=== PATIENT | female | born 1990 | race American Indian/Alaskan Native ===

== ENCOUNTER 2021-01-01 06:02 | Day surgery (SDC) | payer MEDICAID ==
[~2021-01-01 06:02] MED LIST: ACETAMINOPHEN 500 MG TAB PO SCH; CELECOXIB 200 MG CAP PO NR; GABAPENTIN 300 MG CAP PO NR; LACTATED RINGERS 1,000 ML IV SCH; MIDAZOLAM 2 MG/2 ML INJ IV NR; SCOPOLAMINE TRANSDERMAL PATCH 72 HR TD NR; ceFAZolin/STERILE WATER 2 GM/20 ML SYRINGE IV NR
[2021-01-01] MEDS ORDERED: propofoL 200 MG/20 ML VIAL IV ONE (08:58)
[2021-01-01] MEDS ORDERED: fentaNYL 100 MCG/2 ML INJ ONE (08:58)
[2021-01-01] MEDS ORDERED: LIDOCAINE MPF (2%) 20 MG/1 ML VIAL 5 ML ONE (08:59)
[2021-01-01] MEDS ORDERED: ONDANSETRON 4 MG/2 ML INJ ONE (08:59)
[2021-01-01] MEDS ORDERED: dexAMETHasone 20 MG/5 ML VIAL ONE (08:59)
[2021-01-01] MEDS ORDERED: ROCURONIUM 50 MG/5 ML INJ IV ONE (08:59)
[2021-01-01] MEDS ORDERED: HYDROcodone/ACETAMINOPHEN 5-325 MG TAB PO PRN (09:07)
[2021-01-01] MEDS ORDERED: ONDANSETRON 4 MG/2 ML INJ IV PRN (09:07)
--- NOTE | 2021-01-01 09:07 | Anesthesia Day of Surgery ---
Anesthesia Day of Surgery - Day of Surgery Patient Examined: Yes Patient H&P Reviewed: Yes Patient is NPO: Yes
--- NOTE | 2021-01-01 09:07 | Anesthesia Consultation ---
Anesthesia Consult and Med Hx Date of service: 01/01/21 - Airway Anesthetic Teeth Evaluation: Good ROM Head & Neck: Adequate Mental/Hyoid Distance: Adequate Mallampati Class: Class III Intubation Access Assessment: Possibly Difficult - Pre-Operative Health Status ASA Pre-Surgery Classification: ASA3 Proposed Anesthetic Plan: General - Pulmonary Hx Smoking: No Hx Respiratory Symptoms: No Hx Sleep Apnea: No - Cardiovascular System Hx Hypertension: No Hx Heart Attack/AMI: No - Central Nervous System CVA: No Hx Back Pain: Yes - Endocrine Hx Renal Disease: No Hx Liver Disease: No Hx Insulin Dependent Diabetes: No Hx Non-Insulin Dependent Diabetes: No Hx Thyroid Disease: No - Other Systems Hx Obesity: Yes (BMI 42)
[2021-01-01] MEDS ORDERED: LIDOCAINE (1%) 10 MG/1 ML VIAL 20 ML MDV ONE (09:17)
[2021-01-01] MEDS ORDERED: BUPIVACAINE/PF (0.5%) 5 MG/1 ML 30 ML VIAL INFILTRATI ONE (09:17)
[2021-01-01] MEDS ORDERED: HYDROmorphone 1 MG/1 ML INJ ONE (09:52)
[2021-01-01] MEDS ORDERED: GLYCOPYRROLATE 0.4 MG/2 ML INJ ONE ×2 (09:52→10:29)
[2021-01-01] MEDS ORDERED: NEOSTIGMINE 10MG/10 ML INJ MDV ONE (09:52)
[2021-01-01] MEDS ORDERED: LACTATED RINGERS 1,000 ML ONE (10:02)
--- NOTE | 2021-01-01 10:32 | Short Stay Summary ---
Short Stay Documentation Date of service: 01/01/21 - History Principal diagnosis: symptomatic cholelithiasis H&P: obtained from office - Allergies and Medications Current Medications: Allergies No Known Allergies Allergy (Unverified 12/25/20 16:52) Home Medications Medication Instructions Recorded Confirmed Last Taken Type Depo-Provera (Contraception) 1 syr IM [id number] 12/25/20 12/25/20 Unknown History Active Medications Acetaminophen (Acetaminophen 500 Mg Tab) 1,000 mg PO PREOP CATHI Stop: 01/01/21 23:59 Last Admin: 01/01/21 07:30 Dose: 1,000 mg Documented by: Hydrocodone Bitart/Acetaminophen (Hydrocodone/Acetaminophen 5-325 Mg Tab) 2 each PO ONCE PRN PRN Reason: Pain, Moderate (4-6) Cefazolin Sodium (Cefazolin/Sterile Water 2 Gm/20 Ml Syringe) 2 gm IV PREOP NR Stop: 01/01/21 23:59 Celecoxib (Celecoxib 200 Mg Cap) 200 mg PO PREOP NR Stop: 01/01/21 23:59 Last Admin: 01/01/21 07:30 Dose: 200 mg Documented by: Gabapentin (Gabapentin 300 Mg Cap) 300 mg PO PREOP NR Stop: 01/01/21 23:59 Last Admin: 01/01/21 07:30 Dose: 300 mg Documented by: Hydromorphone HCl (Hydromorphone 1 Mg/1 Ml Inj) 0.5 mg IV Q10MIN PRN PRN Reason: Pain , Severe (7-10) Lactated Ringer's (Lactated Ringers) 1,000 mls @ 100 mls/hr IV DIRECT CATHI Stop: 01/01/21 23:59 Last Admin: 01/01/21 07:35 Dose: 100 mls/hr Documented by: Midazolam HCl (Midazolam 2 Mg/2 Ml Inj) 2 mg IV PREOP NR Stop: 01/01/21 23:59 Last Admin: 01/01/21 07:35 Dose: 2 mg Documented by: Ondansetron HCl (Ondansetron 4 Mg/2 Ml Inj) 4 mg IV ONCE PRN PRN Reason: Nausea And Vomiting Scopolamine (Scopolamine Transdermal Patch 72 Hr) 1 each TD PREOP NR Stop: 01/04/21 23:59 Last Admin: 01/01/21 07:30 Dose: 1 each Documented by: - Brief post op/procedure progress note Date of procedure: 01/01/21 Pre-op diagnosis: symptomatic cholelithiasis Post-op diagnosis: same Procedure: laparoscopic cholecystectomy Anesthesia: GETA, local Findings: gallbladder with stones Surgeon: JAYLA OWEN (Jeannette Miller, SCRAPPER assist) Estimated blood loss: minimal Pathology: list (gallbladder) Specimen disposition: to lab Condition: stable - Hospital course Hospital course: Patient observed in PACU and discharged home in stable condition once criteria met - Disposition Condition at discharge: Good Disposition: DC-01 TO HOME OR SELFCARE Short Stay Discharge Plan Activity: other (Avoid heavy lifting greater than 20 pounds for the next 2 weeks, no driving while taking prescription pain medication) Diet: low fat Wound: open to air (May shower tomorrow, pat incisions dry and do not scrub. Do not submerge incisions in bath, hot tub, pool) Follow up with: JULITO SARABIA MD [Primary Care Provider] - 7 Days JAYLA OWEN DO [Staff Physician] - 14 Days Prescriptions: HYDROcodone/APAP 5-325 [[place] 5-325 mg TAB] 1 each PO Q6HR PRN #20 tablet PRN Reason: Pain , Severe (7-10)
--- NOTE | 2021-01-01 10:36 | Operative Report ---
Operative Report Operative Report: Date of procedure: 01/01/21 Pre-op diagnosis: symptomatic cholelithiasis Post-op diagnosis: same Procedure: laparoscopic cholecystectomy Anesthesia: GETA, local Findings: gallbladder with stones Surgeon: JAYLA OWEN Metal Template Maker: BARTOLO Joaquin Estimated blood loss: minimal Pathology: list (gallbladder) Specimen disposition: to lab Condition: stable Hospital course: Patient observed in PACU and discharged home in stable condition once criteria met HPI an indication: 30-year-old female who was seen in the surgery clinic for evaluation of gallstones. Patient was having epigastric abdominal pain radiating to the back which is associated with eating greasy foods. CT scan of the abdomen and pelvis along with ultrasound of the abdomen were reviewed. Patient had gallbladder with mobile gallstones without evidence of choledocholithiasis or cholecystitis. Labs were unremarkable. As the patient was symptomatic from her gallstones, cholecystectomy was recommended. Consent was obtained in the office. Procedure in detail: The patient was identified in the preoperative area and taken back to the operating room, placed on the operating room table in supine position. After anesthesia was induced, the abdomen was prepped and draped in usual sterile fashion and timeout was performed. Local anesthetic was infiltrated into all of the skin incision sites. Using a 11 blade a cruz incision was made in the left upper quadrant at Rust's point through which a Veress needle was inserted. The Veress needle position was confirmed using saline drop test and the abdomen insufflated to 15 mmHg without incident. A supraumbilical incision was then made through which a 5 mm Optiview trocar was placed. The abdomen was then inspected and there was no underlying injury to th e abdominal structures. The Veress needle was identified and removed. The patient was placed in reverse Trendelenburg and tilted to the left. The gallbladder was visualized in the right upper quadrant. An additional 12 mm subxyphoid port, and 2, 5mm RUQ ports were then placed under direct visualization. The gallbladder fundus was grasped and retracted cephalad. The cystic duct and artery were then carefully dissected and the critical view obtained, and the cystic duct and artery were the only two structures seen entering the gallbladder. Three clips were then placed on the proximal aspect of the cystic duct and one clip distally, and 1 clips on the cystic artery proximally. The cystic duct was then transected in between the clips using EndoShears. The cystic artery was very small and was ligated using hook electrocautery. The gallbladder was dissected from the liver bed using hook electrocautery. The gallbladder was placed into a Endo Catch bag and removed from the abdomen via the 12mm port. The gallbladder was palpated and contained multiple small stones. The gallbladder fossa was then inspected and there was no identifiable bleeding or bile leakage. Hemostasis was ensured. The clips on the cystic duct and artery were visualized and intact. The 12 mm port fascia was closed with 2, interrupted 0 Vicryl sutures using the Abram Ojeda device. The remaining ports were removed under direct visualization. Skin incisions were closed with 4-0 Monocryl subcuticular stitches and skin glue. All skin incisions were once again infiltrated with local anesthetic. At the end case all sponge, instrument, sharp counts were correct 2. The patient was awoken from anesthesia, extubated, taken to PACU in stable condition.
[2021-01-01] MEDS: HYDROmorphone 1 MG/1 ML INJ IV PRN ×2 (10:58→11:08)
[2021-01-01 12:43] VITALS: BP 110/58
--- NOTE | 2021-01-01 15:39 | Post Anesthesia Evaluation ---
- Post Anesthesia Evaluation Patient Participated: Yes Airway Patent: Yes Stable Respiratory Function: Yes Nausea/Vomiting: No Temp > 96.8F: Yes Pain Manageable: Yes Adequeate Hydration: Yes Anesthesia Complications: No
== END 2021-01-01 12:10 | disposition home or self-care (01) ==
LOC: OR 06:02 → EDBD 07:30 → OR 12:10
PROVIDERS: ATTEND Surgery
DX: K80.10 Calculus of gallbladder with chronic cholecystitis without obstruction (principal); Z20.822 Contact with and (suspected) exposure to COVID-19; G43.909 Migraine, unspecified, not intractable, without status migrainosus; K21.9 Gastro-esophageal reflux disease without esophagitis; M19.90 Unspecified osteoarthritis, unspecified site; Z72.89 Other problems related to lifestyle; Z79.899 Other long term (current) drug therapy; Z87.440 Personal history of urinary (tract) infections; Z98.890 Other specified postprocedural states
CPT/HCPCS: 47562; 81025; 88304; J0690; J1100; J1170; J2250; J2405; J2704; J2710; J3010; J7120; U0003

== ENCOUNTER 2022-04-07 07:08 | Day surgery (SDC) | payer MEDICAID ==
[~2022-04-07 07:08] MED LIST changes: -ACETAMINOPHEN 500 MG TAB PO SCH; +BUPIVACAINE/PF (0.25%) 2.5 MG/ML 30 ML VIAL INFILTRATI ONE; -CELECOXIB 200 MG CAP PO NR; -GABAPENTIN 300 MG CAP PO NR; -LACTATED RINGERS 1,000 ML IV SCH; +LIDOCAINE (1%) 10 MG/1 ML VIAL 20 ML MDV INFILTRATI ONE; -MIDAZOLAM 2 MG/2 ML INJ IV NR; -SCOPOLAMINE TRANSDERMAL PATCH 72 HR TD NR; +WATER FOR IRRIG STERILE 1,500 ML BOTTLE IR ONE; -ceFAZolin/STERILE WATER 2 GM/20 ML SYRINGE IV NR
[2022-04-07] MEDS ORDERED: LACTATED RINGERS 1,000 ML ONE (07:31)
[2022-04-07] MEDS ORDERED: BUPIVACAINE/PF (0.25%) 2.5 MG/ML 30 ML VIAL INFILTRATI ONE (07:41)
[2022-04-07] MEDS ORDERED: LIDOCAINE (1%) 10 MG/1 ML VIAL 20 ML MDV ONE (07:41)
[2022-04-07] MEDS ORDERED: HYDROmorphone 0.5 MG/0.5 ML INJ IV PRN ×2 (07:59)
[2022-04-07] MEDS ORDERED: ONDANSETRON 4 MG/2 ML INJ IV PRN (07:59)
[2022-04-07] MEDS ORDERED: MIDAZOLAM 2 MG/2 ML INJ IV NR (08:00)
[2022-04-07] MEDS ORDERED: LACTATED RINGERS 1,000 ML IV SCH (08:00)
--- NOTE | 2022-04-07 08:00 | Anesthesia Day of Surgery ---
Anesthesia Day of Surgery - Day of Surgery Patient Examined: Yes Patient H&P Reviewed: Yes Patient is NPO: Yes
--- NOTE | 2022-04-07 08:02 | Anesthesia Consultation ---
Anesthesia Consult and Med Hx Date of service: 04/07/22 - Airway Anesthetic Teeth Evaluation: Crowns ROM Head & Neck: Adequate Mental/Hyoid Distance: Adequate Mallampati Class: Class III Intubation Access Assessment: Probably Good - Pre-Operative Health Status ASA Pre-Surgery Classification: ASA3 Proposed Anesthetic Plan: General - Pulmonary Hx Smoking: No Hx Asthma: No Hx Respiratory Symptoms: No COPD: No Hx Pneumonia: No Hx Sleep Apnea: No - Cardiovascular System Hx Hypertension: No Hx Heart Attack/AMI: No Hx Pacemaker: No Hx Internal Defibrillator: No Hx Heart Murmur: No - Central Nervous System Hx Seizures: No CVA: No Hx Back Pain: Yes Hx Psychiatric Problems: No - Gastrointestinal Hx Gastroesophageal Reflux Disease: Yes (Dietary) - Endocrine Hx Renal Disease: No Hx End Stage Renal Disease: No Hx Cirrhosis: No Hx Liver Disease: No Hx Insulin Dependent Diabetes: No Hx Non-Insulin Dependent Diabetes: No Hx Thyroid Disease: No - Hematic Hx Anemia: No Hx Sickle Cell Disease: No - Other Systems Hx Alcohol Use: Yes (Occas) Hx Substance Use: No Hx Cancer: Yes Hx Obesity: Yes (BMI 44) - Additional Comments Anesthesia Medical History Comments: Was here last year for lap chol
[2022-04-07] MEDS ORDERED: propofoL 200 MG/20 ML VIAL IV ONE (08:03)
[2022-04-07] MEDS ORDERED: fentaNYL 100 MCG/2 ML INJ ONE (08:09)
[2022-04-07] MEDS ORDERED: dexAMETHasone 20 MG/5 ML VIAL ONE (08:09)
[2022-04-07] MEDS ORDERED: ceFAZolin 1 GM VIAL ONE ×2 (09:00)
--- NOTE | 2022-04-07 11:32 | Short Stay Summary ---
Short Stay Documentation Date of service: 04/07/22 - History Principal diagnosis: Left breast mass H&P: obtained from office - Allergies and Medications Current Medications: Allergies No Known Allergies Allergy (Unverified 03/31/22 10:42) Home Medications Medication Instructions Recorded Confirmed Last Taken Type Depo-Provera (Contraception) 1 syr IM [id number] 12/25/20 03/31/22 Unknown History Active Medications Hydromorphone HCl (Hydromorphone 0.5 Mg/0.5 Ml Inj) 0.25 mg IV Q10MIN PRN PRN Reason: Pain, Moderate (4-6) Stop: 04/07/22 20:00 Hydromorphone HCl (Hydromorphone 0.5 Mg/0.5 Ml Inj) 0.5 mg IV Q10MIN PRN PRN Reason: Pain , Severe (7-10) Stop: 04/07/22 20:00 Lactated Ringer's (Lactated Ringers) 1,000 mls @ 125 mls/hr IV DIRECT CATHI Last Admin: 04/07/22 07:40 Dose: 125 mls/hr Midazolam HCl (Midazolam 2 Mg/2 Ml Inj) 2 mg IV PREOP NR Stop: 04/07/22 23:59 Last Admin: 04/07/22 08:20 Dose: 2 mg - Brief post op/procedure progress note Date of procedure: 04/07/22 Pre-op diagnosis: Left breast mass Post-op diagnosis: same Procedure: Open biopsy left breast mass Anesthesia: GETA Findings: Left breast mass localized by clip and by the palpable mass Surgeon: MOLINA BRIGHT Estimated blood loss: minimal Pathology: list (Left breast mass long stitch lateral margin short stitch cephalad margin and long and short stitch anterior margin) Short Stay Discharge Plan Weight Bearing Status: Full Weight Bearing Diet: regular Wound: open to air Follow up with: JULITO SARABIA MD [Primary Care Provider] - 7 Days MOLINA BRIGHT MD [Staff Physician] - 7 Days Forms: Outpatient Surgery DC Inst. Prescriptions: HYDROcodone/APAP 5-325 [[place] 5/325] 1 each PO Q6HR PRN #10 tablet PRN Reason: Pain
--- NOTE | 2022-04-07 11:37 | Operative Report ---
Operative Report Operative Report: Date of procedure: 04/07/2022 Preop diagnosis: Left breast lesion Postop diagnosis: Same Procedure: Open biopsy of left breast lesion Surgeon: Dr. Bingham Anesthesia: LMA general anesthesia with PEG 1 and PEG tube block Specimen: Left breast lesion with short stitch on the caudal margin and long stitch on the lateral margin and a short and long stitch on the anterior margin Estimated blood loss: Minimal Findings: This is a 32-year-old female with a left breast lesion localized on ultrasound and mammogram. A minimally invasive biopsy as an outpatient was performed but was felt to be discordant with radiologic findings. Patient is taken to the OR and under LMA general anesthesia timeouts and consen ts are reviewed and are appropriately on the chart. The left breast is prepped with ChloraPrep and draped in a sterile fashion. A curvilinear incision is made in the upper third of the nipple areolar complex. Electrocautery was used to elevate flaps superiorly and inferiorly. The area of concern is grasped with an Allis. Electrocautery was used to dissect posteriorly until the posterior mammary fat pad is visualized. Margins are labeled with a short stitch on the cephalad margin and a long stitch on the lateral margin and a short and long stitch on the anterior margin. Ultrasound had been used preoperatively to localize the clip at the lesion site. After excision of the specimen it is examined under sterile water with ultrasound to confirm that the clip was within the specimen. The wound is irrigated with sterile water. Hemostasis is good. The wound is closed with 3-0 Vicryl for the subcutaneous tissue and 4-0 Monocryl for the skin followed by Dermabond.
[2022-04-07 13:47] VITALS: BP 114/82
--- NOTE | 2022-04-07 18:15 | Post Anesthesia Evaluation ---
- Post Anesthesia Evaluation Patient Participated: Yes Airway Patent: Yes Stable Respiratory Function: Yes Nausea/Vomiting: No Temp > 96.8F: Yes Pain Manageable: Yes Adequeate Hydration: Yes Anesthesia Complications: No Block Receding Appropriately: Not Applicable Patient on Ventilator: No
== END 2022-04-07 11:30 | disposition home or self-care (01) ==
LOC: OR 07:08
PROVIDERS: ATTEND Surgery
DX: D24.2 Benign neoplasm of left breast (principal); N63.20 Unspecified lump in the left breast, unspecified quadrant; N60.82 Other benign mammary dysplasias of left breast; N60.42 Mammary duct ectasia of left breast; Z20.822 Contact with and (suspected) exposure to COVID-19; G43.909 Migraine, unspecified, not intractable, without status migrainosus; K21.9 Gastro-esophageal reflux disease without esophagitis; E66.9 Obesity, unspecified; M19.90 Unspecified osteoarthritis, unspecified site; Z87.440 Personal history of urinary (tract) infections; Z79.899 Other long term (current) drug therapy; Z90.49 Acquired absence of other specified parts of digestive tract; Z72.89 Other problems related to lifestyle; Z85.43 Personal history of malignant neoplasm of ovary; Z68.41 Body mass index [BMI] 40.0-44.9, adult
CPT/HCPCS: 19120; 88307; J0690; J1100; J2250; J2405; J2704; J3010; J3490; J7120; U0003; J7121